=== PATIENT | male | born 1995 | race Caucasian/White ===

== ENCOUNTER 2019-03-20 16:40 | Emergency (ER) | payer BC, OTHER ==
[2019-03-20 17:03] VITALS: BP 143/106
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
[2019-03-20 17:46] VITALS: PULSE 70; O2SAT 98
--- NOTE | 2019-03-21 08:38 | XRAY ---
Indication: Pain following injury. Comparison: None 3 views of the right wrist obtained. No bony, articular, or soft tissue abnormalities.
== END 2019-03-20 17:46 | disposition home or self-care (01) ==
LOC: ED 16:40
DX: S60.211A Contusion of right wrist, initial encounter (principal); S60.811A Abrasion of right wrist, initial encounter; M25.531 Pain in right wrist; W23.1XXA Caught, crushed, jammed, or pinched between stationary objects, initial encounter; W22.8XXA Striking against or struck by other objects, initial encounter
CPT/HCPCS: 73110; 99283

== ENCOUNTER 2023-06-21 22:10 | Emergency (ER) | payer OTHER ==
[2023-06-21 22:21] VITALS: BP 129/85; PULSE 102; RESP 18; TEMP 98.1; O2SAT 96
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
== END 2023-06-21 22:55 | disposition home or self-care (01) ==
LOC: ED 22:10
DX: Z02.89 Encounter for other administrative examinations (principal); Z79.899 Other long term (current) drug therapy; Z28.310 Unvaccinated for COVID-19; Z72.0 Tobacco use
CPT/HCPCS: 99281